=== PATIENT | male | born 1970 | race Caucasian/White ===

== ENCOUNTER → 2016-11-19 | Outpatient (CLI) | payer OTHER ==
[~2016-11-19] MED LIST: LOVAZA1000 MG PO; VYTORIN 10-401 EACH PO
== END ==
LOC: LITH 14:13
DX: N20.1 Calculus of ureter (principal); E78.00 Pure hypercholesterolemia, unspecified; J45.909 Unspecified asthma, uncomplicated; Z98.890 Other specified postprocedural states